=== PATIENT | male | born 1955 | race Asian ===

== ENCOUNTER 2016-11-02 12:09 | Outpatient (CLI) | payer MEDICAID ==
--- NOTE | 2016-11-03 10:15 | XRAY Report ---
TWO-VIEW LEFT KNEE: 11/02/2016 CLINICAL INDICATION: Knee pain. FINDINGS: Standing frontal and lateral views of the left knee demonstrate mild osteoarthritis, with small osteophytes. No effusion is present. There is no evidence of acute fracture or dislocation. There is geographic curvilinear sclerosis in the proximal tibial marrow cavity, compatible with previ ous bone infarct. IMPRESSION: MILD OSTEOARTHRITIS. OLD BONE INFARCT IN THE PROXIMAL TIBIA. JOB #: [id number] EXT JOB #:
== END 2016-11-02 12:10 | disposition home or self-care (01) ==
LOC: DI 12:09
PROVIDERS: ATTEND Physician Assistant Medical
DX: M17.12 Unilateral primary osteoarthritis, left knee (principal)

== ENCOUNTER 2016-12-26 08:42 | Day surgery (SDC) | payer MEDICAID ==
[2016-12-26] MEDS ORDERED: LACTATED RINGERS 1,000 ML IV ONE (09:15)
[2016-12-26] MEDS ORDERED: fentaNYL 100 MCG/2 ML VIAL IVP ONE (10:20)
[2016-12-26] MEDS ORDERED: MIDAZOLAM 2 MG/2 ML VIAL IVP ONE (10:20)
[2016-12-26 11:51] VITALS: BP 113/72
== END 2016-12-26 08:43 | disposition home or self-care (01) ==
LOC: SDS 08:42
PROVIDERS: ATTEND Surgery
PROC: 0DBL8ZX Excision of Transverse Colon, Via Natural or Artificial Opening Endoscopic, Diagnostic (ICD-10-PCS; 2016-12-26)
PROC: 0DBM8ZX Excision of Descending Colon, Via Natural or Artificial Opening Endoscopic, Diagnostic (ICD-10-PCS; 2016-12-26)
PROC: 0DBH8ZX Excision of Cecum, Via Natural or Artificial Opening Endoscopic, Diagnostic (ICD-10-PCS; 2016-12-26)
PROC: 0DBK8ZX Excision of Ascending Colon, Via Natural or Artificial Opening Endoscopic, Diagnostic (ICD-10-PCS; principal; 2016-12-26 10:00)
DX: D12.2 Benign neoplasm of ascending colon (principal); D12.0 Benign neoplasm of cecum; D12.4 Benign neoplasm of descending colon; D12.3 Benign neoplasm of transverse colon; K57.30 Diverticulosis of large intestine without perforation or abscess without bleeding; K64.4 Residual hemorrhoidal skin tags; Q43.8 Other specified congenital malformations of intestine; I10 Essential (primary) hypertension; Z79.82 Long term (current) use of aspirin; Z87.891 Personal history of nicotine dependence
CPT/HCPCS: 45384; J7120

== ENCOUNTER 2018-04-18 09:47 | Day surgery (SDC) | payer MEDICAID ==
[2018-04-18] MEDS ORDERED: LACTATED RINGERS 1,000 ML IV ONE (11:07)
[2018-04-18] MEDS ORDERED: fentaNYL 250 MCG/5 ML VIAL IVP ONE (11:58)
[2018-04-18] MEDS ORDERED: MIDAZOLAM 2 MG/2 ML VIAL IVP ONE (11:58)
[2018-04-18 13:06] VITALS: BP 115/75
== END 2018-04-18 09:48 | disposition home or self-care (01) ==
LOC: SDS 09:47
PROVIDERS: ATTEND Internal Medicine Gastroenterology
PROC: 0DBL8ZZ Excision of Transverse Colon, Via Natural or Artificial Opening Endoscopic (ICD-10-PCS; principal; 2018-04-18 11:15)
DX: Z12.11 Encounter for screening for malignant neoplasm of colon (principal); D12.3 Benign neoplasm of transverse colon; K57.30 Diverticulosis of large intestine without perforation or abscess without bleeding; I10 Essential (primary) hypertension; G47.30 Sleep apnea, unspecified; Z87.891 Personal history of nicotine dependence
CPT/HCPCS: 45380; J3010; J7120

== ENCOUNTER 2018-06-13 08:00 | Outpatient (CLI) | payer MEDICAID ==
[2018-06-13 19:32] LABS: CALCIUM 9.8 mg/dL (8.5-10.3); CREATININE 1.1 mg/dL (0.6-1.2)
[2018-06-13 20:03] LABS: HB2 TOTAL 16.8 g/dL; HEMOGLOBIN A1C 0.57 g/dL; HEMOGLOBIN A1C % 5.3 % (4.6-6.2)
== END 2018-06-13 23:59 | disposition home or self-care (01) ==
LOC: LAB.WCP 08:00
PROVIDERS: ATTEND Physician Assistant Medical
DX: R73.9 Hyperglycemia, unspecified (principal)
CPT/HCPCS: 36415; 80048; 83036

== ENCOUNTER 2018-06-26 09:00 | Outpatient (CLI) | payer MEDICAID ==
--- NOTE | 2018-06-26 09:47 | XRAY Report ---
Reason: ROTATOR CUFF SYNDROME,RT Procedure Date: 06/26/2018 Accession Number: [id number] / [id number] Procedure: WCP - Shoulder 2 View RT CPT Code: FULL RESULT: EXAM: RIGHT SHOULDER RADIOGRAPHY EXAM DATE: 06/26/2018 09:11 AM. CLINICAL HISTORY: Rotator cuff syndrome, right. COMPARISON: None. TECHNIQUE: 2 views. FINDINGS: Bones: Normal. No fracture or bone lesion. Joints: Mild spurring is noted from the greater tuberosity. Glenohumeral joint otherwise appears normal. Soft tissues: The visualized hemithorax is unremarkable. No soft tissue swelling. IMPRESSION: Mild degenerative spurring from the greater tuberosity. No fracture appreciated. RADIA
== END 2018-06-26 09:01 | disposition home or self-care (01) ==
LOC: DI.WCP 09:00
PROVIDERS: ATTEND Physician Assistant Medical
DX: M75.101 Unspecified rotator cuff tear or rupture of right shoulder, not specified as traumatic (principal); M75.81 Other shoulder lesions, right shoulder

== ENCOUNTER 2018-07-29 13:03 | Outpatient (CLI) | payer MEDICAID | END 2018-07-29 13:04 | disposition home or self-care (01) | LOC: SC 13:03 | PROVIDERS: ATTEND Internal Medicine Pulmonary Disease | DX: G47.33 Obstructive sleep apnea (adult) (pediatric) (principal); E66.9 Obesity, unspecified; Z68.35 Body mass index [BMI] 35.0-35.9, adult; Z87.891 Personal history of nicotine dependence | CPT/HCPCS: 99203; 99212 ==

== ENCOUNTER 2018-08-08 20:30 | Outpatient (CLI) | payer MEDICAID | END 2018-08-08 23:59 | disposition home or self-care (01) | LOC: SC 20:30 | PROVIDERS: ATTEND Internal Medicine Pulmonary Disease | DX: G47.33 Obstructive sleep apnea (adult) (pediatric) (principal); R09.02 Hypoxemia | CPT/HCPCS: 95806 ==

== ENCOUNTER 2018-08-20 15:04 | Outpatient (CLI) | payer MEDICAID | END 2018-08-20 15:05 | disposition home or self-care (01) | LOC: SC 15:04 | PROVIDERS: ATTEND Internal Medicine Pulmonary Disease | DX: G47.33 Obstructive sleep apnea (adult) (pediatric) (principal) | CPT/HCPCS: 99212; 99213 ==

== ENCOUNTER 2018-10-21 09:14 | Outpatient (CLI) | payer MEDICAID | END 2018-10-21 09:15 | disposition home or self-care (01) | LOC: SC 09:14 | PROVIDERS: ATTEND Internal Medicine Pulmonary Disease | DX: G47.33 Obstructive sleep apnea (adult) (pediatric) (principal) | CPT/HCPCS: 99212; 99213 ==

== ENCOUNTER 2019-02-18 08:00 | Outpatient (CLI) | payer MEDICAID ==
[2019-02-18 19:00] LABS: BASOPHILS % (AUTO) 0.4 %; EOSINOPHILS # (AUTO) 0.1 10^3/uL (0.0-0.7); EOSINOPHILS % (AUTO) 1.4 %; HGB - HEMOGLOBIN 14.9 g/dL (14.0-18.0); LYMPHOCYTES # (AUTO) 1.8 10^3/uL (1.5-3.5); LYMPHOCYTES % (AUTO) 19.1 %; MEAN CORPUSCULAR HGB CONC 33.9 g/dL (32.0-36.0); MEAN CORPUSCULAR VOLUME 91.7 fL (80.0-94.0); MONOCYTES # (AUTO) 0.9 10^3/uL (0.0-1.0); MONOCYTES % (AUTO) 9.8 %; NEUTROPHILS # (AUTO) 6.3 10^3/uL (1.5-6.6); PLT - PLATELET COUNT 247 10^3/uL (130-450); WHITE BLOOD COUNT 9.2 x10^3/uL (4.8-10.8)
[2019-02-18 19:37] LABS: ALBUMIN 4.5 g/dL (3.2-5.5); ALBUMIN/GLOBULIN RATIO 1.4 (1.0-2.2); ALKALINE PHOSPHATASE 52 IU/L (42-121); ALT ALANINE AMINOTRANSFERASE 39 IU/L (10-60); AST ASPARTATE AMINOTRANSFERASE 29 IU/L (10-42); BILIRUBIN,TOTAL 0.9 mg/dL (0.2-1.0); BUN - BLOOD UREA NITROGEN 13 mg/dL (6-20); CALCIUM 9.2 mg/dL (8.5-10.3); CARBON DIOXIDE - CO2 26 mmol/L (21-32); CHLORIDE 101 mmol/L (101-111); CHOL/HDL RATIO 4.6 (<5.0); CHOLESTEROL 185 mg/dL; CREATININE 0.9 mg/dL (0.6-1.2); GFR - MDRD 85 (>89); GLUCOSE 99 mg/dL (70-100); HDL CHOLESTEROL 40 mg/dL; LDL CHOLESTEROL,CALCULATED 120 mg/dL; SODIUM 136 mmol/L (135-145); TOTAL PROTEIN 7.7 g/dL (6.7-8.2); VLDL CHOLESTEROL 25 mg/dL
== END 2019-02-18 23:59 | disposition home or self-care (01) ==
LOC: LAB.WCP 08:00
PROVIDERS: ATTEND Physician Assistant Medical
DX: E78.5 Hyperlipidemia, unspecified (principal); I10 Essential (primary) hypertension; R97.20 Elevated prostate specific antigen [PSA]
CPT/HCPCS: 36415; 80053; 80061; 83721; 84153; 85025

== ENCOUNTER 2019-06-25 08:00 | Outpatient (CLI) | payer MEDICAID, MEDICARE | END 2019-06-25 23:59 | disposition home or self-care (01) | LOC: LAB.WCP 08:00 | PROVIDERS: ATTEND Physician Assistant Medical | DX: Z00.00 Encounter for general adult medical examination without abnormal findings (principal) | CPT/HCPCS: 36415; 86900; 86901 ==

== ENCOUNTER 2019-07-17 08:24 | Outpatient (CLI) | payer MEDICAID ==
--- NOTE | 2019-07-17 16:59 | XRAY Report ---
Reason: LEFT PINKY FINGER DEFORMITY Procedure Date: 07/17/2019 Accession Number: [id number] / [id number] Procedure: WCP - Finger(s) LT CPT Code: Final Report FULL RESULT: EXAM: LEFT FIFTH DIGIT RADIOGRAPHY EXAM DATE: 07/17/2019 08:24 AM. CLINICAL HISTORY: LEFT PINKY FINGER DEFORMITY. Jammed finger 2 days ago. Pain at the PIP and MCP joints. COMPARISON: None. TECHNIQUE: 3 views. FINDINGS: Bones: There is an acute nondisplaced spiral fracture of the shaft of the proximal phalanx of the left fifth finger. There are no lucent or sclerotic lesions. Joints: There is mild erosive osteoarthritis of the left fifth DIP joint. There is mild to moderate joint space narrowing/chondromalacia involving third and fourth DIP greater than PIP joints as well. There is also moderate joint space narrowing involving second through fourth MCP joints. There is no osteophyte formation or erosion at these other joints. Soft Tissues: Mild soft tissue swelling at the left fifth proximal phalanx. IMPRESSION: 1. Acute nondisplaced spiral fracture of the shaft of the left fifth proximal phalanx. 2. 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 There is evidence of erosive osteoarthritis of the left fifth DIP joint. RADIA
== END 2019-07-17 23:59 | disposition home or self-care (01) ==
LOC: DI.WCP 08:24
PROVIDERS: ATTEND Family Medicine
DX: S62.647A Nondisplaced fracture of proximal phalanx of left little finger, initial encounter for closed fracture (principal); M19.042 Primary osteoarthritis, left hand
CPT/HCPCS: 73140

== ENCOUNTER 2020-04-21 08:00 | Outpatient (CLI) | payer MEDICAID, MEDICARE ==
[2020-04-21 13:00] LABS: BASOPHILS # (AUTO) 0.1 10^3/uL (0.0-0.1); BASOPHILS % (AUTO) 0.7 %; EOSINOPHILS # (AUTO) 0.1 10^3/uL (0.0-0.7); EOSINOPHILS % (AUTO) 1.6 %; LYMPHOCYTES % (AUTO) 26.6 %; MEAN CORPUSCULAR HEMOGLOBIN 30.2 pg (27.0-31.0); MEAN CORPUSCULAR HGB CONC 33.1 g/dL (32.0-36.0); MEAN CORPUSCULAR VOLUME 91.3 fL (80.0-94.0); MONOCYTES # (AUTO) 0.7 10^3/uL (0.0-1.0); MONOCYTES % (AUTO) 8.7 %; NEUTROPHILS # (AUTO) 4.8 10^3/uL (1.5-6.6); NEUTROPHILS % (AUTO) 62.1 %; PLT - PLATELET COUNT 245 10^3/uL (130-450); RED BLOOD COUNT 4.96 10^6/uL (4.70-6.10); RED CELL DISTRIBUTION WIDTH 13.6 % (12.0-15.0); WHITE BLOOD COUNT 7.7 x10^3/uL (4.8-10.8)
[2020-04-21 13:41] LABS: ALBUMIN 4.7 g/dL (3.2-5.5); ALBUMIN/GLOBULIN RATIO 1.5 (1.0-2.2); ALKALINE PHOSPHATASE 57 IU/L (42-121); ALT ALANINE AMINOTRANSFERASE 41 IU/L (10-60); AST ASPARTATE AMINOTRANSFERASE 30 IU/L (10-42); BUN - BLOOD UREA NITROGEN 15 mg/dL (6-20); CARBON DIOXIDE - CO2 27 mmol/L (21-32); CHLORIDE 102 mmol/L (101-111); CHOL/HDL RATIO 6.3 (<5.0); CHOLESTEROL 228 mg/dL; CREATININE 0.8 mg/dL (0.6-1.2); GLUCOSE 107 mg/dL (70-100); HDL CHOLESTEROL 36 mg/dL; LDL CHOLESTEROL,CALCULATED 149 mg/dL; LDL/HDL RATIO 4.1 (<3.6); SODIUM 138 mmol/L (135-145); TOTAL PROTEIN 7.9 g/dL (6.7-8.2); VLDL CHOLESTEROL 43 mg/dL
[2020-04-22 12:37] LABS: HEPATITIS C ANTIBODY NON-REACTIVE (NON-REACTIVE)
== END 2020-04-21 23:59 | disposition home or self-care (01) ==
LOC: LAB.WCP 08:00
PROVIDERS: ATTEND Physician Assistant Medical
DX: Z01.84 Encounter for antibody response examination (principal); E78.5 Hyperlipidemia, unspecified; R97.20 Elevated prostate specific antigen [PSA]; I10 Essential (primary) hypertension
CPT/HCPCS: 36415; 80053; 80061; 83721; 84153; 85025; 86803

== ENCOUNTER 2020-10-13 12:24 | Outpatient (CLI) | payer MEDICARE ==
--- NOTE | 2020-10-13 15:17 | XRAY Report ---
PROCEDURE: Finger(s) RT INDICATIONS: SPRAIN OF R THUMB TECHNIQUE: AP hand, 3 views of the right finger(s) acquired. COMPARISON: None. FINDINGS: Diffuse interphalangeal joint degeneration, and first CMC, triscaphe osteoarthritis. No acute fracture identified. Diffuse soft tissue swelling. IMPRESSION: No definite fracture however follow-up radiographs in 10 days could be performed if the patient's sym ptoms do not improve to exclude occult fracture/assess for healing sclerosis. Chronic and degenerative changes as above. Reviewed by: Magan Fuller MD on 10/13/2020 3:16 PM PDT Approved by: Magan Fuller MD on 10/13/2020 3:16 PM PDT Station ID: [id number]
== END 2020-10-13 23:59 | disposition home or self-care (01) ==
LOC: DI.N 12:24
PROVIDERS: ATTEND Physician Assistant Medical
DX: M18.11 Unilateral primary osteoarthritis of first carpometacarpal joint, right hand (principal); M19.041 Primary osteoarthritis, right hand; M19.031 Primary osteoarthritis, right wrist

== ENCOUNTER 2021-04-18 08:00 | Outpatient (CLI) | payer MEDICARE ==
[2021-04-18 12:02] LABS: BASOPHILS # (AUTO) 0.1 10^3/uL (0.0-0.1); BASOPHILS % (AUTO) 0.6 %; EOSINOPHILS # (AUTO) 0.2 10^3/uL (0.0-0.7); EOSINOPHILS % (AUTO) 2.4 %; HGB - HEMOGLOBIN 14.9 g/dL (14.0-18.0); LYMPHOCYTES # (AUTO) 2.1 10^3/uL (1.5-3.5); LYMPHOCYTES % (AUTO) 25.4 %; MEAN CORPUSCULAR HEMOGLOBIN 29.7 pg (27.0-31.0); MEAN CORPUSCULAR HGB CONC 32.4 g/dL (32.0-36.0); MEAN CORPUSCULAR VOLUME 91.8 fL (80.0-94.0); MEAN PLATELET VOLUME 10.8 fL (7.4-11.4); MONOCYTES # (AUTO) 0.8 10^3/uL (0.0-1.0); MONOCYTES % (AUTO) 8.9 %; NEUTROPHILS # (AUTO) 5.2 10^3/uL (1.5-6.6); NEUTROPHILS % (AUTO) 62.5 %; PLT - PLATELET COUNT 240 10^3/uL (130-450); RED BLOOD COUNT 5.01 10^6/uL (4.70-6.10); RED CELL DISTRIBUTION WIDTH 13.3 % (12.0-15.0); WHITE BLOOD COUNT 8.4 x10^3/uL (4.8-10.8)
[2021-04-18 12:39] LABS: ALBUMIN 4.5 g/dL (3.2-5.5); ALBUMIN/GLOBULIN RATIO 1.4 (1.0-2.2); ALKALINE PHOSPHATASE 52 IU/L (42-121); ALT ALANINE AMINOTRANSFERASE 33 IU/L (10-60); AST ASPARTATE AMINOTRANSFERASE 24 IU/L (10-42); BILIRUBIN,TOTAL 0.7 mg/dL (0.2-1.0); BUN - BLOOD UREA NITROGEN 13 mg/dL (6-20); CARBON DIOXIDE - CO2 30 mmol/L (21-32); CHLORIDE 100 mmol/L (101-111); CHOL/HDL RATIO 6.2 (<5.0); CHOLESTEROL 218 mg/dL; CREATININE 0.9 mg/dL (0.6-1.2); GFR - MDRD 84 (>89); GLUCOSE 103 mg/dL (70-100); HDL CHOLESTEROL 35 mg/dL; LDL CHOLESTEROL,CALCULATED 136 mg/dL; LDL/HDL RATIO 3.9 (<3.6); POTASSIUM 3.9 mmol/L (3.5-5.0); SODIUM 139 mmol/L (135-145); TOTAL PROTEIN 7.8 g/dL (6.7-8.2); TRIGLYCERIDES 236 mg/dL; VLDL CHOLESTEROL 47 mg/dL
== END 2021-04-18 23:59 ==
LOC: LAB.WCP 08:00
PROVIDERS: ATTEND Physician Assistant Medical
DX: E78.5 Hyperlipidemia, unspecified (principal); I10 Essential (primary) hypertension
CPT/HCPCS: 36415; 80053; 80061; 83721; 85025

== ENCOUNTER 2021-05-26 06:46 | Day surgery (SDC) | payer MEDICARE ==
[~2021-05-26 06:46] MED LIST: CYCLOPENTOLATE 1% OPHTH DROPS 2 ML ONE; KETOROLAC 0.45% OPHTH DROPS ONE; PHENYLEPHRINE 2.5% OPHTH 2 ML DROPS ONE; PROPARACAINE 0.5% OPHTH DROPS 15 ML ONE
[2021-05-26] MEDS ORDERED: LACTATED RINGERS 1,000 ML IV ONE (07:18)
--- NOTE | 2021-05-26 07:52 | ANESTHESIA ---
Pre-Anesthesia VS, & Labs - Diagnosis R cataract - Procedure R PhacoIOL Vital Signs: Temp Pulse Resp BP Pulse Ox 36.5 C 75 16 130/79 97 05/26/21 07:25 05/26/21 07:25 05/26/21 07:25 05/26/21 07:25 05/26/21 07:25 Height: 5 ft 9 in Weight (kg): 106 kg Body Mass Index: 34.4 BMI Classification: Obese - NPO >8 hours Home Medications and Allergies Aspirin [Aspir 81] 81 mg PO DAILY 12/02/14 Losartan/Hydrochlorothiazide [Losartan-Hctz 100-25 mg Tab] 1 tab PO DAILY 12/02/14 Allergies/Adverse Reactions: Allergies Allergy/AdvReac Type Severity Reaction Status Date / Time No Known Drug Allergies Allergy Verified 04/18/18 11:01 Anes History & Medical History - Anesthetic History Anesthesia Complications: reports: No previous complications Family history of Anesthesia Complications: Denies Family history of Malignant Hyperthermia: Denies - Medical History Cardiovascular: reports: Hypertension Pulmonary: reports: Sleep apnea, CPAP use Gastrointestinal: reports: None Urinary: reports: None Musculoskeletal: reports: None Endocrine/Autoimmune: reports: None Skin: reports: None - Surgical History General: reports: Colonoscopy Exam General: Alert, Oriented x3, Cooperative Dental: WNL Mouth Openin Fingerbreadth Neck Mobility: Normal Mallampati classification: II Thyromental Distance: 4-6 cm Respiratory: Lungs clear Cardiovascular: Regular rate Plan Anesthesia Type: MAC Consent for Procedure(s) Verified and Reviewed: Yes Code Status: Attempt Resuscitation ASA classification: 2-Mild systemic disease Is this case an emergency?: No
[2021-05-26] MEDS ORDERED: MIDAZOLAM 2 MG/2 ML VIAL ONE (07:56)
[2021-05-26] MEDS ORDERED: TRIAMCIN/MOXIFLOX OPHTHALMIC 0.6 ML VIAL IO ONE (08:10)
[2021-05-26] MEDS ORDERED: PROPARACAINE 0.5% OPHTH DROPS 15 ML EACHEYE ONE (08:10)
[2021-05-26] MEDS ORDERED: BSS/LIDOCAINE/EPINEPHRINE 1 ML SYRINGE IO ONE (08:10)
[2021-05-26] MEDS ORDERED: EPINEPHrine 1 MG/ML AMP IR ONE (08:10)
[2021-05-26] MEDS ORDERED: TIMOLOL 0.5% OPHTH DROPS OPTH ONE (08:10)
[2021-05-26] MEDS ORDERED: BRIMONIDINE 0.2% OPHTH DROPS 5 ML OPTH ONE (08:10)
[2021-05-26] MEDS ORDERED: fentaNYL 100 MCG/2 ML VIAL ONE (08:21)
[2021-05-26] MEDS ORDERED: LACTATED RINGERS 700 ML IV ONE (08:30)
--- NOTE | 2021-05-26 08:32 | OPERATIVE REPORT ---
Operative Report - Other Other Information/Narrative: Date of Surgery: 05/26/21 Preop Dx: Visually significant cataract right eye. This was the first cataract surgery. Postop Dx: Same Procedure: Phacoemulsification with posterior chamber intraocular lens implant right eye Surgeon: Dr. Suleiman Prabhakar Anesthesia: Monitored anesthesia care Complications: None Operative Indications: This is a 65-year-old M with progressive vision loss in the right eye due to 2+ nuclear scleroticand 3+ cortical cataract. Best corrected visual acuity was 20/20 with glare to 20/125 vision in the right eye. Indications for surgery were: - Overall decrease in vision - Difficulty driving in low light or at night - Difficulty driving at night because of headlights from other vehicles The risks and benefits of cataract surgery after which the patient expressed a desire to proceed with surgery. Operative Procedure: The patient was taken into OR#3 and placed under monitored anesthesia care. A surgical time-out was conducted confirming correct patient, correct procedure, and correct surgical site. The patient was given topical anesthesia and then prepped and draped in the usual sterile fashion. The eye was entered at the 6 and 3 oclock positions. Intracameral Shugarcaine was injected into the anterior chamber followed by a dispersive viscoelastic. A continuous-tear curvilinear capsulorhexis was performed. The nucleus was hydrodissected and phacoemulsified. The cortex was evacuated using automated infusion and aspiration. A cohesive viscoelastic was injected into the capsular bag and a 20.0 diopter intraocular lens was inserted into the bag. Infusion and aspiration were used to evacuate the viscoelastic materials from the eye. The wounds were hydrated and the eye inflated to physiologic pressure using balanced salt solution. Approximately 0.25ml of a mixture of triamcinolone and moxifloxacin was injected trans-sclerally into the vitreous in the inferotemporal quadrant using a 30 gauge cannula. An additional 0.55ml of a mixture of triamcinolone and moxifloxacin was injected subconjunctivally in the superior quadrant for infection and inflammation prophylaxis. Wound integrity was checked with Weck-Ekta sponges. The patient was taken from the operating room in good condition and given post-op instructions.
[2021-05-26 08:57] VITALS: BP 112/63
--- NOTE | 2021-05-26 13:06 | ANESTHESIA POST OP EVALUATION ---
Anesthesia Post Eval - Post Anesthesia Eval Vitals: Last Vital Signs Temp 36.5 C 05/26/21 08:56 Pulse 68 05/26/21 08:56 Resp 16 05/26/21 08:56 BP 112/63 05/26/21 08:56 Pulse Ox 95 05/26/21 08:56 CV Function Including HR & BP: Stable Pain Control: Satisfactory Nausea & Vomiting: Negative Mental Status: Baseline Respiratory Status: Airway Patent Hydration Status: Satisfactory Anesthesia Complications: None
== END 2021-05-26 06:47 | disposition home or self-care (01) ==
LOC: SDS 06:46
PROVIDERS: ATTEND Ophthalmology
DX: H25.811 Combined forms of age-related cataract, right eye (principal); G47.33 Obstructive sleep apnea (adult) (pediatric); I10 Essential (primary) hypertension; E66.9 Obesity, unspecified; Z68.34 Body mass index [BMI] 34.0-34.9, adult; Z79.82 Long term (current) use of aspirin; Z79.899 Other long term (current) drug therapy
CPT/HCPCS: 66984; A9270; J3490; J7120

== ENCOUNTER 2021-07-21 12:05 | Outpatient (CLI) | payer MEDICARE ==
--- NOTE | 2021-07-23 17:07 | Nuclear Medicine Report ---
PROCEDURE: Rest and exercise myocardial perfusion SPECT with gated imaging and ejection fraction INDICATIONS: ATYPICAL CHEST PAIN RADIOPHARMACEUTICAL: 10.2 mCi Tc-99m Myoview IV at rest and 35.7 mCi Tc-99m Myoview IV at peak exerc ise. Wdw-hmw-ucprqxde was performed. TECHNIQUE: Radiopharmaceutical was injected at peak stress test, and also at rest. SPECT images wer e obtained. SPECT myocardial perfusion images were displayed in short axis, horizontal long axis, an d vertical long axis views. Gated images were reviewed using AutoQUANT software. COMPARISON: None available. FINDINGS: Raw data: There is good myocardial labeling by radiotracer. No significant motion artifacts. Lung- to-heart ratio is 0.41 (normal is less than 0.46 for tetrafosmin tracer). No definitive EKG changes of ischemia are identified. The patient achieved 85% of maximum predicted heart rate. There is normal hemodynamic response to stress. Left ventricle function: Gated images demonstrate normal left ventricle wall thickening. No segment al wall motion abnormality. No transient ischemic dilation; TID is 0.96 (normal less than 1.30). Th e left ventricle resting end-diastolic volume is 81 mL. Left ventricle stress ejection fraction is 8 4%; normal values are above 45%. Myocardial perfusion: There is normal distribution of activity in the left and right ventricular marjorie cardium. No fixed or reversible perfusion defects. IMPRESSION: No stress perfusion defect indicate ischemia. Ejection fraction 84%. No definitive EKG changes of ischemia. PQRS ATTESTATIONS: Measure 322 - Is this imaging test primarily performed on a low-risk surgery patient for preoperative evaluation within 30 days preceding their low-risk non-cardiac surgery? Low-risk surgery is defined as cardiac or myocardial infarction less than 1%, including (but not limited to) endoscopic pr ocedures, superficial procedures, cataract surgery, and excisional breast surgery: Answer: No Measure 323 - Is this imaging test performed primarily for the monitoring of an asymptomatic patient who had percutaneous coronary intervention on the visit date or within 2 years of the visit date? An swer: No Measure 324 - Is this imaging test performed primarily for the initial detection and risk assessment on an asymptomatic, low coronary heart disease patient? Low CHD risk definition = clinicians should consider the maximum number of available patient factors used to estimate risk based on [place] (A TP III criteria), typically age, gender, diabetes, smoking status, and use of blood pressure medicati on, and integrate age appropriate estimates for missing elements, such as LDL or standard blood press ure. Answer: No Reviewed by: Gely George MD on 07/23/2021 5:05 PM PST Approved by: Gely George MD on 07/23/2021 5:05 PM PST Station ID: [id number]
--- NOTE | 2021-07-24 14:32 | CARDIAC PROCEDURE NOTE ---
Stress Test Report Service Date: 07/21/21 Ordering Provider: JUNIE Martin Indication for Test: Atypical Chest Pain Cardiac Risk Factors: Male gender, HTN, Family Hx of heart disease Type of Stress Test: ETT with Myocardial Perfusion Imaging Procedure: After signing informed consent, the patient underwent a treadmill exercise stress test with nuclear myocardial perfusion imaging. Resting heart rate: 62 Peak HR: 132 (86% PMHR) Resting BP: 148/80 Peak BP: 180/90 The patient exercised for 6 min on a Hussein-protocol treadmill. He achieved a peak HR of 132 (86% predicted maximum heart rate for age), and 7.05 METS. He had no chest pain with exercise, had mild-moderate shortness of breath, rated his perceived exertion at 13/20 on the Martha scale, and O2 saturation remained over 92% on room air. Resting EKG: NSR, left atrial enlargement, early R/S transition, delta waves present laterally in V3-V6 (without [place] interval shortening, that together would suggest WPW). EKG at peak: ST segment depressions which are upsloping in V3-V6 and new T wave inversion in lead V2, flat T wave in V3. Nuclear images were reported separately. Summary: 1) Abnormal resting EKG. 2) Borderline significant EKG changes occur with exercise to suggest ischemia. 3) Nuclear images were reported separately and showed: No fixed or reversible defects seen to suggest ischemia. Normal LVEF. Conclusion: 1) No evidence of cardiac ischemia 2) This patient's cardiac risk: Low Recommendations: 1) Consider obtaining a complete Echo exam to evaluate for Cor Pulmonale, given the early R/S transition on EKG.
== END 2021-07-21 12:06 | disposition home or self-care (01) ==
LOC: DI 12:05
PROVIDERS: ATTEND Physician Assistant Medical
DX: R07.89 Other chest pain (principal); I10 Essential (primary) hypertension; Z82.49 Family history of ischemic heart disease and other diseases of the circulatory system
CPT/HCPCS: 78452; 93017; A9500

== ENCOUNTER 2022-04-07 08:58 | Outpatient (CLI) | payer MEDICARE ==
--- NOTE | 2022-04-07 10:25 | XRAY Report ---
PROCEDURE: Chest 2 View X-Ray INDICATIONS: COUGH CHRONIC TECHNIQUE: 2 views of the chest were acquired. COMPARISON: None FINDINGS: Surgical changes and devices: None. Lungs and pleura: No pleural effusions or pneumothorax. Lungs are clear. Mediastinum: Mediastinal contours are normal. Heart size is mildly enlarged. Bones and chest wall: No suspicious bony abnormalities. Soft tissues appear unremarkable. IMPRESSION: No acute pulmonary process. Reviewed by: Gely George MD on 04/07/2022 10:23 AM [facility] [place] Approved by: Gely George MD on 04/07/2022 10:23 AM [facility] [place] Station ID: [id number]
== END 2022-04-07 08:59 | disposition home or self-care (01) ==
LOC: DI 08:58
PROVIDERS: ATTEND Physician Assistant Medical
DX: R05.3 Chronic cough (principal)

== ENCOUNTER 2022-05-25 08:10 | Outpatient (CLI) | payer MEDICARE ==
[2022-05-25 08:23] LABS: BASOPHILS # (AUTO) 0.1 10^3/uL (0.0-0.1); BASOPHILS % (AUTO) 0.6 %; EOSINOPHILS # (AUTO) 0.2 10^3/uL (0.0-0.7); EOSINOPHILS % (AUTO) 1.9 %; HCT - HEMATOCRIT 47.6 % (42.0-52.0); HGB - HEMOGLOBIN 15.5 g/dL (14.0-18.0); LYMPHOCYTES % (AUTO) 21.5 %; MEAN CORPUSCULAR HEMOGLOBIN 29.4 pg (27.0-31.0); MEAN CORPUSCULAR HGB CONC 32.6 g/dL (32.0-36.0); MEAN CORPUSCULAR VOLUME 90.3 fL (80.0-94.0); MEAN PLATELET VOLUME 9.8 fL (7.4-11.4); MONOCYTES % (AUTO) 10.1 %; NEUTROPHILS # (AUTO) 6.2 10^3/uL (1.5-6.6); NEUTROPHILS % (AUTO) 65.6 %; PLT - PLATELET COUNT 246 10^3/uL (130-450); RED BLOOD COUNT 5.27 10^6/uL (4.70-6.10); RED CELL DISTRIBUTION WIDTH 13.2 % (12.0-15.0); WHITE BLOOD COUNT 9.5 x10^3/uL (4.8-10.8)
[2022-05-25 08:42] LABS: ALBUMIN 4.6 g/dL (3.2-5.5); ALBUMIN/GLOBULIN RATIO 1.2 (1.0-2.2); ALKALINE PHOSPHATASE 54 IU/L (42-121); ALT ALANINE AMINOTRANSFERASE 45 IU/L (10-60); AST ASPARTATE AMINOTRANSFERASE 34 IU/L (10-42); BILIRUBIN,TOTAL 1.1 mg/dL (0.2-1.0); BUN - BLOOD UREA NITROGEN 15 mg/dL (6-20); CALCIUM 9.8 mg/dL (8.5-10.3); CARBON DIOXIDE - CO2 28 mmol/L (21-32); CHLORIDE 97 mmol/L (101-111); CHOL/HDL RATIO 5.7 (<5.0); CHOLESTEROL 199 mg/dL; GFR - MDRD 75 (>89); GLUCOSE 113 mg/dL (70-100); HDL CHOLESTEROL 35 mg/dL; LDL CHOLESTEROL,CALCULATED 115 mg/dL; LDL/HDL RATIO 3.3 (<3.6); POTASSIUM 3.9 mmol/L (3.5-5.0); SODIUM 135 mmol/L (135-145); TOTAL PROTEIN 8.4 g/dL (6.7-8.2); TRIGLYCERIDES 244 mg/dL; VLDL CHOLESTEROL 49 mg/dL
[2022-05-25 09:25] LABS: PSA FREE 0.45 ng/mL (0.16-2.81)
[2022-05-25 09:26] LABS: PSA TOTAL 1.41 ng/mL (0.000-2.000)
[2022-05-25 11:56] LABS: ESTIMATED AVERAGE GLUCOSE 137 mg/dL (70-100); HEMOGLOBIN A1c% 6.4 % (4.27-6.07)
== END 2022-05-25 08:11 | disposition home or self-care (01) ==
LOC: LAB 08:10
PROVIDERS: ATTEND Physician Assistant Medical
DX: E78.5 Hyperlipidemia, unspecified (principal); I10 Essential (primary) hypertension; R73.9 Hyperglycemia, unspecified; R97.20 Elevated prostate specific antigen [PSA]
CPT/HCPCS: 36415; 80053; 80061; 83036; 83721; 84153; 84154; 85025

== ENCOUNTER 2022-06-07 07:44 | Outpatient (CLI) | payer MEDICARE ==
--- NOTE | 2022-06-07 09:07 | Ultrasound Report ---
PROCEDURE: Aorta Screening INDICATIONS: FORMER SMOKER, SCREENING FOR LUNG CA TECHNIQUE: Real time scanning was performed of the aorta and iliac arteries, with image documentatio n. COMPARISON: None FINDINGS: Aorta: Proximal aortic diameter measures 2.4 x 2.3 cm. Mid-aorta measures 2.1 x 2.0 cm. Distal aor tic diameter is 1.8 x 1.8 cm. Iliac arteries: Right common iliac artery measures 1.0 x 1.0 cm. Left common iliac artery measures 1.2 x 1.4 cm. There is moderate atherosclerotic plaque in the proximal iliac arteries and in the aorta. IMPRESSION: 1.Moderate atherosclerotic plaque. 2.No abdominal aortic aneurysm. Reviewed by: Seferino Lebron on 06/07/2022 9:06 AM [facility] Approved by: Seferino Lebron on 06/07/2022 9:06 AM PST Station ID: [id number]
--- NOTE | 2022-06-07 10:00 | CT Report ---
PROCEDURE: Low Dose Lung Cancer Screen INDICATIONS: FORMER SMOKER, SCREENING FOR LUNG CA TECHNIQUE: Noncontrast low-dose axial images were acquired from the pulmonary apices to the posterior costophren ic angles. Multiplanar MIP reformats were then reconstructed. For radiation dose reduction, the follo wing was used: automated exposure control, adjustment of mA and/or kV according to patient size. COMPARISON: None. FINDINGS: Image quality: Excellent. Lungs and pleura: The lungs are clear. There is no pneumothorax or pleural effusion. Mediastinum: Heart size is normal. The arteries have atherosclerotic calcifications. No pericardial effusion. No mediastinal adenopathy by size criteria. Thoracic aorta and central pulmonary arteries are normal in size. Esophagus is normal in caliber. No hiatal hernia. Bones and chest wall: No suspicious bony lesions. No vertebral body compression fractures. No axil david or supraclavicular adenopathy by size criteria. The thyroid is normal in size and there are no incidental findings. Abdomen: Visualized upper abdomen solid organs and bowel loops appear normal in the absence of contr ast. IMPRESSION: Lung RADS 1. No nodules or definitely benign nodules. Continue annual screening with low- dose chest CT. Reviewed by: Seferino Lebron on 06/07/2022 9:58 AM [facility] Approved by: Seferino Lebron on 06/07/2022 9:58 AM [facility] Station ID: [id number]
== END 2022-06-07 07:45 | disposition home or self-care (01) ==
LOC: DI 07:44
PROVIDERS: ATTEND Physician Assistant Medical
DX: Z12.2 Encounter for screening for malignant neoplasm of respiratory organs (principal); Z87.891 Personal history of nicotine dependence; Z13.6 Encounter for screening for cardiovascular disorders; I70.0 Atherosclerosis of aorta

== ENCOUNTER 2022-07-03 09:26 | Outpatient (CLI) | payer MEDICARE ==
[2022-07-03 22:16] VITALS: BP 146/82
--- NOTE | 2022-07-03 22:16 | SLEEP CARE CONSULTATION ---
Information from patient questionnaire entered by Willie Nunes. I have reviewed and concur with the information entered by Willie Nunes. This document represents the service I personally performed and the decisions made by me, Jacinto Arroyo MD, [facility]. History of Present Illness Service Date and Time: 07/03/2022925 Reason for Visit: New patient Chief Complaint: reports: Other (UPDATE SUPPLIES) Usual bedtime: 11PM Time it takes to fall asleep: 15MIN Snores at night: Yes Observed to quit breathing while asleep: Yes Sleeps alone due to snoring: No Number of times waking at night: 3 Reasons for waking at night: reports: Other (DRY MOUTH) Toss, Turn, or Twitch while sleeping: No Recalls having dreams: No Usually gets out of bed at: 0430 Feels refreshed in the morning: Yes Morning headache: No Sleepy or fatigued during the day: Yes Ever fallen asleep while driving: No Takes day naps: Yes Dreams during day naps: Yes Prior sleep studies: Yes Additional HPI information: Mr. Carias returned today for follow up of nasal CPAP therapy after last seen 4 years ago. He was diagnosed to have severe obstructive sleep apnea-hypopnea syndrome here in 2019 utilizing a home sleep apnea test (HSAT). The patient went to [facility], [place] for the equipment. He wears the ResMed P10 nasal pillows with a chinstrap. He reports using the device almost nightly and all through the night. The compliance report shows usage in 65 nights out of the past 90 nights, averaging 3.8 hours a night. The > 4 hour compliance rate for the past 30 days is 44%. He complained of dry mouth but he does not put water into the heated hum idifier. He thinks that the pressure of 15 - 18 cmH2O is comfortable and does not want anything lower. On the CPAP therapy he does not notice any improvement. The [place] Sleepiness Scale score 8. The average residual AHI is 0.9; and air leak, 17.1 L/min. The 90th percentile pressure is 15.7 cmH2O. - Parasomnia Symptoms Ever been unable to move upon waking from sleep: No Walks in sleep: No Talks in sleep: No Ever acted out dreams in sleep: No Ever felt weak in the knees when startled or emotional: No Bothered by creepy, crawly, restless sensations in legs: No Problems with memory or concentration: Yes Subjective Initial [place] Sleepiness Scale score: 11 (05/30/22) Social History The patient's occupation is a RE. Patient is and lives in [place]. Years of smokin Quit date: 1998 Alcohol use: No Caffeine use: Yes Caffeine amount and frequency: 1 CUP DAILY Family History Family history of sleep disordered breathing: No Allergies and Home Medications Known drug allergies: No Drug allergies reviewed: Yes Home medication list reviewed: Yes Allergy and home medication list: Allergies No Known Drug Allergies Allergy (Verified 04/18/18 11:01) Review of Systems Weight gain over past 5 years: 20 Cardiovascular: reports: high blood pressure Respiratory: reports: sputum production Gastrointestinal: denies: heartburn, difficulty swallowing, nausea, vomitting, diarrhea, abdominal pain, other Urinary: denies: incontinence, frequency, urgency, impotence, other Neurological: denies: headaches, seizure, head trauma, disorientation, speech dysfunction, gait or balance problems, fainting or unconsciousness, other Psychiatric: denies: Attention Deficit Hyperactivity, anxiety, depression, mood disorder, claustrophobia, other Ear/Nose/Throat: denies: nasal congestion, sinus problems, nose bleeds, dry mouth/throat, hoarseness, injury to nose, tonsillectomy, wisdom teeth removed, other Endocrine: denies: thyroid disease, history of goiter, sluggishness, too hot or cold, excessive thirst, increased appetite, increased urination, unexplained weakness, other Musculoskeletal: denies: joint pain, neck pain, back pain, joint swelling, muscle pain or cramping, mobility problems, other Immunologic: denies: sneezing, rash, itching, allergies to food or environment, other Physical Exam Vital signs obtained and entered by: WILLIE Allan MA Blood Pressure: 146/82 (LEFT ARM) Cuff size: long Heart Rate: 67 O2 Saturation: 94 Height: 5 ft 9 in Weight: 241 lb 6.4 oz Body Mass Index: 35.6 BMI Classification: Obese Neck circumference: 15.5 Mood/affect: Normal HEENT: No craniofacial malformation (The rest of the physical exam is unchanged from 4 years ago.) Impression and Plan IMPRESSION: 1. Obstructive Sleep Apnea-Hypopnea Syndrome, severe, as previously diagnosed. The patient has [id number] compliance some discomfort from dry throat to the nasal pillows hurting the inside of his nostrils. The current pressure setting appears effective and comfortable. I recommend he use the heated humidifier. I showed him different masks and nasal pillows. Plan: 1. Prescription made for supplies through [facility]. 2. Try a ResMed N30i mask. 3. Try to lose weight. 4. Return for follow up in two months. Prescriptions: Device supplies Visit Type: In Office Time Spent with Patient (minutes): 15 Provider Statement: I spent 100% of the Face to Face Visit with the patient with greater than 50% spent counseling the patient and coordination of care.
== END 2022-07-03 09:27 | disposition home or self-care (01) ==
LOC: SC 09:26
PROVIDERS: ATTEND Internal Medicine Pulmonary Disease
DX: G47.33 Obstructive sleep apnea (adult) (pediatric) (principal); E66.9 Obesity, unspecified; Z68.35 Body mass index [BMI] 35.0-35.9, adult; Z87.891 Personal history of nicotine dependence
CPT/HCPCS: 99202; G0463; 99212

== ENCOUNTER 2022-08-28 09:48 | Outpatient (CLI) | payer MEDICARE, OTHER ==
[2022-08-28 12:35] VITALS: BP 142/80
--- NOTE | 2022-08-28 12:35 | SLEEP CARE CONSULTATION ---
Information from patient questionnaire entered by Willie Nunes. I have reviewed and concur with the information entered by Willie Nunes. This document represents the service I personally performed and the decisions made by me, Jacinto Arroyo MD, [facility]. History of Present Illness Service Date and Time: 08/28/2022 0948 Reason for follow up: other (2 MONTH F/U ) Equipment type: CPAP (RESMED) HPI additional information: Mr. Carias was diagnosed to have severe obstructive sleep apnea-hypopnea syndrome and returns today for follow up of CPAP therapy. The patient purchased the device from [employer] and was fitted with a nasal mask. He uses the device nightly and all through the night. The compliance report shows that he uses the device 52 nights out of the past 60 nights, averaging 4.2 hours a night. The > 4 hour compliance rate for the past 30 days is 50%. He complains of dryness. He said he started to put water in the humidifier, and it worked well for a month then it flooded him. He is back not using the water. He thinks that the pressure of 15 - 18 cmH2O is comfortable. On the CPAP therapy he notices improvement in his sleep quality, and that he wakes up feeling fresher in the morning and more awake/alert during the day. His notices no snore at all. [place] Sleepiness Scale score is 6. The average residual AHI is 1.3; and average air leak is 11.9 L/minute. The 90th percentile pressure is 15.6 cmH2O. Subjective Initial [place] Sleepiness Scale score: 6 (08/28/22) Allergies and Home Medications Drug allergies reviewed: Yes Home medication list reviewed: Yes Allergy and home medication list: Allergies No Known Drug Allergies Allergy (Verified 08/25/22 10:44) Physical Exam Vital signs obtained and entered by: WILLIE Allan MA Blood Pressure: 142/80 (LEFT ARM) Cuff size: regular Heart Rate: 72 O2 Saturation: 91 Height: 5 ft 9 in Weight: 243 lb 9.6 oz Body Mass Index: 35.9 BMI Classification: Obese Impression and Plan IMPRESSION: 1. Obstructive Sleep Apnea-Hypopnea Syndrome, severe, with the patient continuing to do well on nasal CPAP therapy. He has decent compliance and significant clinical benefits. The current pressure appears effective and comfortable. Overall, he is very satisfied with treatment and plans to continue with it long-term. No adjustment is necessary today. I advised him to use water again but turn up the tube temperature to prevent condensation (he does not know he could do this). PLAN: 1. Continue with autoCPAP set at 15 - 18 cm H2O. He does not want it any lower. 2. Try to lose weight. 3. Increase the tube temperature. 4. Return in one year for follow up or earlier if there is any problem with the treatment. Counseling Topics: Weight control Follow up with Sleep Care in: 1 year Visit Type: In Office Time Spent with Patient (minutes): 15 Provider Statement: I spent 100% of the Face to Face Visit with the patient with greater than 50% spent counseling the patient and coordination of care.
== END 2022-08-28 09:49 | disposition home or self-care (01) ==
LOC: SC 09:48
PROVIDERS: ATTEND Internal Medicine Pulmonary Disease
DX: G47.33 Obstructive sleep apnea (adult) (pediatric) (principal); E66.9 Obesity, unspecified; Z68.35 Body mass index [BMI] 35.0-35.9, adult
CPT/HCPCS: 99212; G0463

== ENCOUNTER 2022-09-14 06:49 | Day surgery (SDC) | payer MEDICARE, OTHER ==
[2022-09-14] MEDS ORDERED: LACTATED RINGERS 1,000 ML IV ONE (07:12)
[2022-09-14] MEDS ORDERED: VANCOMYCIN OPHTH (TOPICAL) 10 MG/ML SYRINGE ONE (08:20)
[2022-09-14] MEDS ORDERED: TIMOLOL 0.5% OPHTH DROPS ONE (08:20)
[2022-09-14] MEDS ORDERED: EPINEPHrine 1 MG/ML AMP ONE (08:20)
[2022-09-14] MEDS ORDERED: TRIAMCIN/MOXIFLOX OPHTHALMIC 0.6 ML VIAL IO ONE ×2 (08:20→08:52)
[2022-09-14] MEDS ORDERED: BSS/LIDOCAINE/EPINEPHRINE 1 ML VIAL ONE (08:20)
[2022-09-14] MEDS ORDERED: BRIMONIDINE 0.2% OPHTH DROPS 5 ML ONE (08:20)
[2022-09-14] MEDS ORDERED: MIDAZOLAM 2 MG/2 ML VIAL ONE (08:22)
--- NOTE | 2022-09-14 08:39 | ANESTHESIA ---
Pre-Anesthesia VS, & Labs - Diagnosis L cataract - Procedure L phacoIOL Vital Signs: Temp Pulse Resp BP Pulse Ox O2 Flow Rate 36.8 C 68 18 134/78 H 95 09/14/22 07:05 09/14/22 07:05 09/14/22 07:05 09/14/22 07:05 09/14/22 07:05 Height: 5 ft 9 in Weight (kg): 109.9 kg Body Mass Index: 35.7 BMI Classification: Obese - NPO >8 hours Home Medications and Allergies Aspirin [Aspir 81] 81 mg PO DAILY 12/02/14 Losartan/Hydrochlorothiazide [Losartan-Hctz 100-25 mg Tab] 1 tab PO DAILY 12/02/14 Allergies/Adverse Reactions: Allergies Allergy/AdvReac Type Severity Reaction Status Date / Time No Known Drug Allergies Allergy Verified 08/28/22 09:51 Anes History & Medical History - Anesthetic History Anesthesia Complications: reports: No previous complications Family history of Anesthesia Complications: Denies Family history of Malignant Hyperthermia: Denies - Medical History Cardiovascular: reports: Hypertension Pulmonary: reports: Sleep apnea, CPAP use Gastrointestinal: reports: None Urinary: reports: None Musculoskeletal: reports: None Endocrine/Autoimmune: reports: None Skin: reports: None - Surgical History General: reports: Colonoscopy Eyes Ears Nose Throat (EENT): reports: Cataracts Exam General: Alert, Oriented x3, Cooperative Dental: WNL Mouth Openin Fingerbreadth Neck Mobility: Normal Mallampati classification: II Thyromental Distance: 4-6 cm Respiratory: Lungs clear Cardiovascular: Regular rate Plan Anesthesia Type: MAC Consent for Procedure(s) Verified and Reviewed: Yes Code Status: Attempt Resuscitation ASA classification: 3-Severe systemic disease Is this case an emergency?: No
[2022-09-14] MEDS ORDERED: EPINEPHrine 1 MG/ML AMP IR ONE (08:51)
[2022-09-14] MEDS ORDERED: BRIMONIDINE 0.2% OPHTH DROPS 5 ML OPTH ONE (08:51)
[2022-09-14] MEDS ORDERED: TIMOLOL 0.5% OPHTH DROPS OPTH ONE (08:51)
[2022-09-14] MEDS ORDERED: PROPARACAINE 0.5% OPHTH DROPS 15 ML EACHEYE ONE (08:52)
[2022-09-14] MEDS ORDERED: VANCOMYCIN OPHTH (TOPICAL) 10 MG/ML SYRINGE TOP ONE (08:52)
[2022-09-14] MEDS ORDERED: BSS/LIDOCAINE/EPINEPHRINE 1 ML SYRINGE IO ONE (08:52)
[2022-09-14] MEDS ORDERED: LACTATED RINGERS 950 ML IV ONE (09:01)
--- NOTE | 2022-09-14 09:09 | OPERATIVE REPORT ---
Operative Report - Other Other Information/Narrative: Date of Surgery: 09/14/22 Preop Dx: Visually significant cataract left eye. Cataract surgery was performed in the right eye on . Postop Dx: Same Procedure: Phacoemulsification with posterior chamber intraocular lens implant left eye Surgeon: Dr. Suleiman Prabhakar Anesthesia: Monitored anesthesia care Complications: None Operative Indications: This is a 67-year-old M with progressive vision loss in the left eye due to 2+ nuclear sclerotic and 3+ cortical cataract. Best corrected visual acuity was 20/20 with glare to 20/60 vision in the left eye. Indications for surgery were: - Overall decrease in vision - Difficulty seeing words on a computer screen - Difficulty reading - Difficulty seeing words, closed captions, or game scores on TV - Difficulty driving at night because of headlights from other vehicles The patient was consented at length concerning the risks and benefits of cataract surgery after which the patient expressed a desire to proceed with surgery. Operative Procedure: The patient was taken into OR#3 and placed under monitored anesthesia care. A surgical time-out was conducted confirming correct patient, correct procedure, and correct surgical site. The patient was given topical anesthesia and then prepped and draped in the usual sterile fashion. The eye was entered at the 6 and 3 oclock positions. Intracameral Shugarcaine was injected into the anterior chamber followed by a dispersive viscoelastic. A continuous-tear curvilinear capsulorhexis was performed. The nucleus was hydrodissected and phacoemulsified. The cortex was evacuated using automated infusion and aspiration. A cohesive viscoelastic was injected into the capsular bag and a 20.0 diopter intraocular lens was inserted into the bag. Infusion and aspiration were used to evacuate the viscoelastic materials from the eye. The wounds were hydrated and the eye inflated to physiologic pressure using balanced salt solution. Approximately 0.25ml of a mixture of triamcinolone and moxifloxacin was injected trans-sclerally into the vitreous in the inferotemporal quadrant using a 30 gauge cannula. An additional 0.25ml of a mixture of triamcinolone and moxifloxacin was injected subconjunctivally in the superior quadrant for infection and inflammation prophylaxis. Wound integrity was checked with Weck-Ekta sponges. The patient was taken from the operating room in good condition and given post-op instructions.
[2022-09-14 09:19] VITALS: BP 114/55
--- NOTE | 2022-09-14 16:19 | ANESTHESIA POST OP EVALUATION ---
Anesthesia Post Eval - Post Anesthesia Eval Vitals: Last Vital Signs Temp 36.6 C 09/14/22 09:18 Pulse 65 09/14/22 09:18 Resp 16 09/14/22 09:18 BP 114/55 L 09/14/22 09:18 Pulse Ox 95 09/14/22 09:18 O2 Flow Rate CV Function Including HR & BP: Stable Pain Control: Satisfactory Nausea & Vomiting: Negative Mental Status: Baseline Respiratory Status: Airway Patent Hydration Status: Satisfactory Anesthesia Complications: None
== END 2022-09-14 06:50 | disposition home or self-care (01) ==
LOC: SDS 06:49
PROVIDERS: ATTEND Ophthalmology
DX: H25.812 Combined forms of age-related cataract, left eye (principal); I10 Essential (primary) hypertension; G47.30 Sleep apnea, unspecified; E66.9 Obesity, unspecified; Z68.35 Body mass index [BMI] 35.0-35.9, adult
CPT/HCPCS: 66984; A9270; J3490; J7120

== ENCOUNTER 2022-11-14 08:20 | Outpatient (CLI) | payer MEDICARE ==
[2022-11-14 12:03] LABS: ESTIMATED AVERAGE GLUCOSE 146 mg/dL (70-100); HEMOGLOBIN A1c% 6.7 % (4.27-6.07)
[2022-11-14 12:09] LABS: CALCIUM 8.9 mg/dL (8.5-10.3); POTASSIUM 3.9 mmol/L (3.5-5.0)
== END 2022-11-14 08:21 | disposition home or self-care (01) ==
LOC: LAB.N 08:20
PROVIDERS: ATTEND Physician Assistant Medical
DX: R73.9 Hyperglycemia, unspecified (principal)
CPT/HCPCS: 36415; 80048; 83036

== ENCOUNTER 2023-04-10 08:58 | Outpatient (CLI) | payer MEDICARE ==
[2023-04-10 12:27] LABS: ESTIMATED AVERAGE GLUCOSE 134 mg/dL (70-100); HEMOGLOBIN A1c% 6.3 % (4.27-6.07)
[2023-04-10 12:37] LABS: CALCIUM 9.7 mg/dL (8.5-10.3)
== END 2023-04-10 08:59 | disposition home or self-care (01) ==
LOC: LAB.N 08:58
PROVIDERS: ATTEND Physician Assistant Medical
DX: E11.9 Type 2 diabetes mellitus without complications (principal)
CPT/HCPCS: 36415; 80048; 83036

== ENCOUNTER 2023-05-11 07:07 | Day surgery (SDC) | payer MEDICARE ==
[2023-05-11] MEDS ORDERED: LACTATED RINGERS 1,000 ML IV ONE ×2 (07:32→09:01)
--- NOTE | 2023-05-11 07:49 | ANESTHESIA ---
Pre-Anesthesia VS, & Labs - Diagnosis Screening exam - Procedure colonoscopy Vital Signs: Temp Pulse Resp BP Pulse Ox O2 Flow Rate 36.4 C L 7 L 10 L 144/97 H 98 05/11/23 07:28 05/11/23 07:28 05/11/23 07:28 05/11/23 07:28 05/11/23 07:28 Height: 5 ft 9 in Weight (kg): 108 kg Body Mass Index: 35.2 BMI Classification: Obese - NPO >8 hours Home Medications and Allergies Aspirin [Aspir 81] 81 mg PO DAILY 12/02/14 Losartan/Hydrochlorothiazide [Losartan-Hctz 100-25 mg Tab] 1 tab PO DAILY 12/02/14 Ascorbic Acid/Collagen Hydr [Collagen Skin Renewal Tab] 1 each PO DAILY 04/06/23 Cholecalciferol (Vitamin D3) [Vitamin D3] 50 mcg PO DAILY 04/06/23 Ginkgo Biloba [place] Extract [Ginkgo Biloba Extract] 60 mg PO DAILY 04/06/23 Multivitamin 1 each PO DAILY 04/06/23 Om-3/Dha/Epa/Fish/D3/Saw/Herbs [Prostate Optimizer Softgel] 1 each PO DAILY 04/06/23 [place]-3 Fatty Acids [[place]-3] 900 mg PO DAILY 04/06/23 Protamdin Nrf2 1 tab PO DAILY 04/06/23 Red Rice Yeast 600 mg PO DAILY 04/06/23 Resveratrol/Ascorbic Acid [Resveratrol 100-100 mg Capsule] 1 each PO DAILY 04/06/23 Tumeric/Ging/[place]/Oreg/Capryl [Candicidal Capsule] 1 each PO DAILY 04/06/23 Ubidecarenone/Vit E Acet [Co Q-10 100 mg Softgel] 1 each PO DAILY 04/06/23 flaxseed oiL [Flaxseed Oil] 1,000 mg PO DAILY 04/06/23 glucosamine HCL [Glucosamine HCl] 1,500 mg PO DAILY 04/06/23 Allergies/Adverse Reactions: Allergies Allergy/AdvReac Type Severity Reaction Status Date / Time No Known Drug Allergies Allergy Verified 08/28/22 09:51 Anes History & Medical History - Anesthetic History Anesthesia Complications: reports: No previous complications - Medical History Cardiovascular: reports: Hypertension Pulmonary: reports: Sleep apnea, CPAP use Gastrointestinal: reports: None Urinary: reports: None Musculoskeletal: reports: None Endocrine/Autoimmune: reports: Type 2 diabetes (borderline, not taking meds) Skin: reports: None Smoking Status: Never smoker Psychosocial: reports: No issues indicated History of Cancer?: No - Surgical History General: reports: Colonoscopy Eyes Ears Nose Throat (EENT): reports: Cataracts Exam General: Alert, Oriented x3, Cooperative, No acute distress Dental: WNL Mouth Openin Fingerbreadth Neck Mobility: Normal Mallampati classification: III Thyromental Distance: 4-6 cm Mental/Cognitive Status: Alert/Oriented X3, Normal for patient Plan Anesthesia Type: General, Total IV Consent for Procedure(s) Verified and Reviewed: Yes Code Status: Attempt Resuscitation ASA classification: 2-Mild systemic disease Is this case an emergency?: No
[2023-05-11] MEDS ORDERED: PROPOFOL 500 MG/50 ML 500 MG/50 ML VIAL ONE (08:04)
[2023-05-11] MEDS ORDERED: GLYCOPYRROLATE 1 MG/5 ML VIAL ONE (08:59)
[2023-05-11 09:14] VITALS: O2SAT 94
[2023-05-11 09:24] VITALS: BP 141/88
--- NOTE | 2023-05-11 15:06 | ANESTHESIA POST OP EVALUATION ---
Anesthesia Post Eval - Post Anesthesia Eval Vitals: Last Vital Signs Temp 36.4 C L 05/11/23 07:28 Pulse 94 05/11/23 09:14 Resp 16 05/11/23 09:14 BP 141/88 H 05/11/23 09:14 Pulse Ox 94 05/11/23 09:14 O2 Flow Rate CV Function Including HR & BP: Stable Pain Control: Satisfactory Nausea & Vomiting: Negative Mental Status: Baseline Respiratory Status: Airway Patent Hydration Status: Satisfactory Anesthesia Complications: None
== END 2023-05-11 07:08 | disposition home or self-care (01) ==
LOC: SDS 07:07
PROVIDERS: ATTEND Surgery
PROC: 0DBN8ZZ Excision of Sigmoid Colon, Via Natural or Artificial Opening Endoscopic (ICD-10-PCS; 2023-05-11)
PROC: 0DBM8ZZ Excision of Descending Colon, Via Natural or Artificial Opening Endoscopic (ICD-10-PCS; 2023-05-11)
PROC: 0DBH8ZZ Excision of Cecum, Via Natural or Artificial Opening Endoscopic (ICD-10-PCS; principal; 2023-05-11 08:30)
DX: Z12.11 Encounter for screening for malignant neoplasm of colon (principal); D12.0 Benign neoplasm of cecum; D12.4 Benign neoplasm of descending colon; D12.5 Benign neoplasm of sigmoid colon; K57.30 Diverticulosis of large intestine without perforation or abscess without bleeding; E11.9 Type 2 diabetes mellitus without complications; E66.9 Obesity, unspecified; Z68.35 Body mass index [BMI] 35.0-35.9, adult; G47.30 Sleep apnea, unspecified; I10 Essential (primary) hypertension
CPT/HCPCS: 45380; 45385; J7120

== ENCOUNTER 2023-06-21 09:19 | Outpatient (CLI) | payer MEDICARE ==
--- NOTE | 2023-06-21 13:40 | CT Report ---
PROCEDURE: Lung Cancer Screen INDICATIONS: TOBACCO DEPENDENCE TECHNIQUE: A CT scan of the chest was performed. Intravenous contrast media was not administered. Images were re corded and evaluated at appropriate window settings. Reformats: axial MIP of the chest, coronal and s agittal. For radiation dose reduction, the following was used: automated exposure control, adjustment of mA and/or kV according to patient size. COMPARISON: CT chest 06/07/2022 FINDINGS: Image quality: Excellent. Lungs and pleura: No pleural effusions. No pneumothorax. No suspicious pulmonary nodules which requi re follow up. Mediastinum: Heart size is normal. Mild coronary calcifications. No pericardial effusion. No large ve ssel abnormality. Mild atherosclerotic vascular calcifications. No mediastinal adenopathy by size cri teria. Chest wall and lower neck: Thyroid is unremarkable. No axillary or supraclavicular adenopathy by size . Bones: No aggressive osseous abnormality. Upper Abdomen: Splenic calcification is noted. IMPRESSION: No suspicious pulmonary nodules. Lung RAD: 1 - Negative. Recommendation: Continue annual screening in 12 Months with LDCT Reviewed by: Jaiden Hayes MD on 06/21/2023 1:39 PM PST Approved by: Jaiden Hayes MD on 06/21/2023 1:39 PM PST Station ID: [id number]
== END 2023-06-21 09:20 | disposition home or self-care (01) ==
LOC: DI 09:19
PROVIDERS: ATTEND Physician Assistant Medical
DX: Z12.2 Encounter for screening for malignant neoplasm of respiratory organs (principal); F17.201 Nicotine dependence, unspecified, in remission

== ENCOUNTER 2023-08-14 10:11 | Outpatient (CLI) | payer MEDICARE ==
[2023-08-14 12:06] LABS: BASOPHILS # (AUTO) 0.1 10^3/uL (0.0-0.1); EOSINOPHILS # (AUTO) 0.2 10^3/uL (0.0-0.7); HCT - HEMATOCRIT 44.9 % (42.0-52.0); HGB - HEMOGLOBIN 14.7 g/dL (14.0-18.0); LYMPHOCYTES # (AUTO) 2.1 10^3/uL (1.5-3.5); LYMPHOCYTES % (AUTO) 29.1 %; MEAN CORPUSCULAR HEMOGLOBIN 29.8 pg (27.0-31.0); MEAN CORPUSCULAR HGB CONC 32.7 g/dL (32.0-36.0); MEAN CORPUSCULAR VOLUME 90.9 fL (80.0-94.0); MEAN PLATELET VOLUME 10.8 fL (7.4-11.4); MONOCYTES # (AUTO) 0.7 10^3/uL (0.0-1.0); MONOCYTES % (AUTO) 9.8 %; NEUTROPHILS # (AUTO) 4.1 10^3/uL (1.5-6.6); NEUTROPHILS % (AUTO) 56.3 %; PLT - PLATELET COUNT 240 10^3/uL (130-450); RED BLOOD COUNT 4.94 10^6/uL (4.70-6.10); WHITE BLOOD COUNT 7.3 x10^3/uL (4.8-10.8)
[2023-08-14 12:25] LABS: ALBUMIN 4.3 g/dL (3.2-5.5); ALBUMIN/GLOBULIN RATIO 1.4 (1.0-2.2); ALKALINE PHOSPHATASE 51 IU/L (42-121); ALT ALANINE AMINOTRANSFERASE 37 IU/L (10-60); AST ASPARTATE AMINOTRANSFERASE 25 IU/L (10-42); BILIRUBIN,TOTAL 0.6 mg/dL (0.2-1.0); BUN - BLOOD UREA NITROGEN 15 mg/dL (6-20); CALCIUM 9.7 mg/dL (8.5-10.3); CARBON DIOXIDE - CO2 30 mmol/L (21-32); CHLORIDE 102 mmol/L (101-111); CHOL/HDL RATIO 5.6 (<5.0); CHOLESTEROL 195 mg/dL; CREATININE 0.9 mg/dL (0.6-1.3); GFR - MDRD 84 (>89); GLUCOSE 93 mg/dL (74-104); HDL CHOLESTEROL 35 mg/dL; LDL CHOLESTEROL,CALCULATED 112 mg/dL; LDL/HDL RATIO 3.2 (<3.6); POTASSIUM 3.8 mmol/L (3.5-4.5); SODIUM 137 mmol/L (135-145); TOTAL PROTEIN 7.3 g/dL (6.4-8.9); TRIGLYCERIDES 238 mg/dL (48-352); VLDL CHOLESTEROL 48 mg/dL
[2023-08-14 13:22] LABS: THYROID STIMULATING HORMONE 2.24 uIU/mL (0.34-5.60)
[2023-08-14 14:28] LABS: ESTIMATED AVERAGE GLUCOSE 137 mg/dL (70-100); HEMOGLOBIN A1c% 6.4 % (4.27-6.07)
== END 2023-08-14 10:12 | disposition home or self-care (01) ==
LOC: LAB.N 10:11
PROVIDERS: ATTEND Physician Assistant Medical
DX: E11.9 Type 2 diabetes mellitus without complications (principal); R97.20 Elevated prostate specific antigen [PSA]; I10 Essential (primary) hypertension
CPT/HCPCS: 36415; 80053; 80061; 83036; 83721; 84153; 84443; 85025

== ENCOUNTER 2023-09-24 08:58 | Outpatient (CLI) | payer MEDICARE ==
--- NOTE | 2023-09-24 21:06 | SLEEP CARE CONSULTATION ---
Information from patient questionnaire entered by Willie Nunes. I have reviewed and concur with the information entered by Willie Nunes. This document represents the service I personally performed and the decisions made by me, Jacinto Arroyo MD, [facility]. History of Present Illness Service Date and Time: 09/24/2023 0858 Reason for follow up: annual (LAST SEEN 08/2022) Equipment type: CPAP (RESMED) HPI additional information: Mr. Carias was diagnosed to have severe obstructive sleep apnea-hypopnea syndrome and returns today for follow up of CPAP therapy. The patient gets his supplies from [facility] and was fitted with ResMed P10 nasal pillows. He uses the device most nights all through the night. The compliance report shows that he uses the device 344 nights out of the past 365 nights, averaging 5 hours a night. The > 4 hour compliance rate for the past 365 days is 76%. He complains of dryness. He thinks that the pressure of 15 - 18 cmH2O is comfortable. On the CPAP therapy he notices improvement in his sleep quality, and that he wakes up feeling fresher in the morning and more awake/alert during the day. His notices no snore at all. [place] Sleepiness Scale score is 9. The average residual AHI is 1.4; and average air leak is 11.1 L/minute. The 90th percentile pressure is 15.8 cmH2O. CPAP Compliance Data - Data Reviewed with Patient Average duration of nightly device use: 4HRS 59MINS Compliance rate %: 76 (09/20/22-09/19/23) Current pressure setting (cmH2O): 15-18 Average residual AHI: 1.4 Subjective Initial [place] Sleepiness Scale score: 6 (08/28/22) Current [place] Sleepiness Scale score: 8 (09/24/23) Allergies and Home Medications Drug allergies reviewed: Yes Home medication list reviewed: Yes Allergy and home medication list: Allergies No Known Drug Allergies Allergy (Verified 09/20/23 11:39) Review of Systems Review of systems same as previous: Yes (NO CHANGE) Physical Exam Vital signs obtained and entered by: WILLIE Allan MA Blood Pressure: 145/88 (LEFT ARM) Cuff size: regular Heart Rate: 62 O2 Saturation: 98 Height: 5 ft 9 in Weight: 241 lb 6.4 oz Body Mass Index: 35.6 BMI Classification: Obese Impression and Plan IMPRESSION: 1. Obstructive Sleep Apnea-Hypopnea Syndrome, severe, with the patient continuing to do well on nasal CPAP therapy. He has decent compliance and significant clinical benefits. The current pressure appears effective and comfortable. Overall, he is very satisfied with treatment and plans to continue with it long-term. No adjustment is necessary today. Because the CPAP is now older than the useful life of 5 years, I will order the patient a new one and make it an autoCPAP set between 15 and 18 cmH2O. PLAN: 1. Prescription made for an autoCPAP, heated humidifier, and related supplies. 2. Try Poligrip denture adhesive strips to seal his lips shut. 3. Return in one year for follow up or earlier if there is any problem with the treatment. Prescriptions: Auto CPAP Follow up with Sleep Care in: 1 year Visit Type: In Office Time Spent with Patient (minutes): 15 Provider Statement: I spent 100% of the Face to Face Visit with the patient with greater than 50% spent counseling the patient and coordination of care.
[2023-09-24 21:12] VITALS: BP 145/88; O2SAT 98
== END 2023-09-24 08:59 | disposition home or self-care (01) ==
LOC: SC 08:58
PROVIDERS: ATTEND Internal Medicine Pulmonary Disease
DX: G47.33 Obstructive sleep apnea (adult) (pediatric) (principal); E66.9 Obesity, unspecified; Z68.35 Body mass index [BMI] 35.0-35.9, adult
CPT/HCPCS: 99212; G0463

== ENCOUNTER 2023-11-14 10:23 | Outpatient (CLI) | payer MEDICARE ==
[2023-11-14 12:12] LABS: CALCIUM 10.2 mg/dL (8.5-10.3); CREATININE 1.4 mg/dL (0.6-1.3); POTASSIUM 3.9 mmol/L (3.5-4.5)
[2023-11-14 12:17] LABS: ESTIMATED AVERAGE GLUCOSE 137 mg/dL (70-100); HEMOGLOBIN A1c% 6.4 % (4.27-6.07)
== END 2023-11-14 10:24 | disposition home or self-care (01) ==
LOC: LAB.N 10:23
PROVIDERS: ATTEND Physician Assistant Medical
DX: E11.9 Type 2 diabetes mellitus without complications (principal)
CPT/HCPCS: 36415; 80048; 83036

== ENCOUNTER 2024-02-06 10:33 | Outpatient (CLI) | payer MEDICARE ==
[2024-02-06 11:38] LABS: BASOPHILS # (AUTO) 0.1 10^3/uL (0.0-0.1); BASOPHILS % (AUTO) 0.6 %; EOSINOPHILS # (AUTO) 0.1 10^3/uL (0.0-0.7); EOSINOPHILS % (AUTO) 1.8 %; HCT - HEMATOCRIT 45.9 % (42.0-52.0); HGB - HEMOGLOBIN 15.2 g/dL (14.0-18.0); LYMPHOCYTES # (AUTO) 1.8 10^3/uL (1.5-3.5); LYMPHOCYTES % (AUTO) 22.7 %; MEAN CORPUSCULAR HEMOGLOBIN 30.6 pg (27.0-31.0); MEAN CORPUSCULAR HGB CONC 33.1 g/dL (32.0-36.0); MEAN CORPUSCULAR VOLUME 92.5 fL (80.0-94.0); MEAN PLATELET VOLUME 10.5 fL (7.4-11.4); MONOCYTES # (AUTO) 0.8 10^3/uL (0.0-1.0); MONOCYTES % (AUTO) 10.2 %; NEUTROPHILS % (AUTO) 64.4 %; PLT - PLATELET COUNT 248 10^3/uL (130-450); RED BLOOD COUNT 4.96 10^6/uL (4.70-6.10); RED CELL DISTRIBUTION WIDTH 13.6 % (12.0-15.0); WHITE BLOOD COUNT 7.8 x10^3/uL (4.8-10.8)
[2024-02-06 11:50] LABS: BILIRUBIN,URINE NEGATIVE (NEGATIVE); GLUCOSE, URINE (UA) NEGATIVE (NEGATIVE); KETONES,URINE (UA) NEGATIVE (NEGATIVE); LEUKOCYTE ESTERASE, URINE NEGATIVE (NEGATIVE); NITRITE,URINE NEGATIVE (NEGATIVE); OCCULT BLOOD,URINE NEGATIVE (NEGATIVE); PROTEIN,URINE NEGATIVE (NEGATIVE); UROBILINOGEN,URINE 0.2 (NORMAL) E.U./dL (NORMAL)
[2024-02-06 11:51] LABS: ALBUMIN 4.6 g/dL (3.2-5.5); ALBUMIN/GLOBULIN RATIO 1.6 (1.0-2.2); BILIRUBIN,TOTAL 0.6 mg/dL (0.2-1.0); CALCIUM 9.9 mg/dL (8.5-10.3); CREATININE 0.9 mg/dL (0.6-1.3); CRP - C-REACTIVE PROTEIN 0.5 mg/dL (<0.5); POTASSIUM 3.7 mmol/L (3.5-4.5); TOTAL PROTEIN 7.5 g/dL (6.4-8.9)
[2024-02-06 11:59] LABS: CREATININE,URINE 88.4 mg/dL; MICROALBUM/CREATININE RATIO,UR 105.2 ug/mg (<30.0); MICROALBUMIN,URINE 9.3 mg/dL
[2024-02-06 12:02] LABS: BACTERIA,URINE None Seen /HPF (None Seen); CLARITY,URINE CLEAR (CLEAR); RBC,URINE None Seen /HPF (0-5); SQUAMOUS EPITHELIAL CELL,UR NONE SEEN (<= Few); WBC,URINE 0-3 /HPF (0-3)
[2024-02-06 12:08] LABS: ESTIMATED AVERAGE GLUCOSE 137 mg/dL (70-100); HEMOGLOBIN A1c% 6.4 % (4.27-6.07)
== END 2024-02-06 10:34 | disposition home or self-care (01) ==
LOC: LAB.N 10:33
PROVIDERS: ATTEND Nurse Practitioner
DX: I10 Essential (primary) hypertension (principal); R80.9 Proteinuria, unspecified; E11.9 Type 2 diabetes mellitus without complications; R42 Dizziness and giddiness
CPT/HCPCS: 36415; 80053; 81001; 82043; 82570; 82607; 83036; 85025; 85651; 86140; 87086